=== PATIENT | female | born 1960 | race Caucasian/White ===

== ENCOUNTER → 2016-09-12 | Outpatient (CLI) | payer MEDICARE, MEDICAID ==
[~2016-09-12] MED LIST: ATIVAN 0.50.5 MG/TAB PO; FLEXERIL 1010 MG/TAB PO; MOTRIN 800800 MG/TAB PO; NEURONTIN600 MG/TAB PO; RISPERDAL2 MG PO
== END ==
LOC: COL.RAD 09:10
DX: R10.11 Right upper quadrant pain (principal); R14.0 Abdominal distension (gaseous); R93.2 Abnormal findings on diagnostic imaging of liver and biliary tract
CPT/HCPCS: A9537

== ENCOUNTER → 2017-03-08 | Outpatient (CLI) | payer MEDICARE, MEDICAID | LOC: COL.RAD 08:20 | DX: N20.0 Calculus of kidney (principal); K76.89 Other specified diseases of liver; Z90.710 Acquired absence of both cervix and uterus; K52.89 Other specified noninfective gastroenteritis and colitis ==

== ENCOUNTER → 2017-08-27 | Outpatient (CLI) | payer MEDICARE, MEDICAID | LOC: COL.RAD 15:52 | DX: M43.16 Spondylolisthesis, lumbar region (principal); M41.86 Other forms of scoliosis, lumbar region ==

== ENCOUNTER 2018-04-19 14:15 | Outpatient (RCR) | payer MEDICARE, MEDICAID ==
[2018-05-17] MEDS ORDERED: NEURONTIN800 MG/TAB PO (08:18)
[2018-05-17] MEDS ORDERED: MOBIC15 MG PO (08:19)
[2018-05-17] MEDS ORDERED: NORCO 325 MG-51 TAB PO ×2 (08:20→10:02)
[2018-05-17] MEDS ORDERED: LIORESAL 1010 MG/TAB PO (08:20)
[2018-05-17] MEDS ORDERED: BACTRIM DS 8001 TAB PO (08:21)
[2018-05-17] MEDS ORDERED: [UNRECOGNIZED DRUG - OTHER] PO (08:28)
[2018-05-17] MEDS ORDERED: FLOMAX 0.40.4 MG/CAP PO (10:01)
[2018-05-17] MEDS ORDERED: SENOKOT S 50 MG1 TAB PO (10:03)
== END 2018-06-09 | disposition home or self-care (01) ==
LOC: WSPT
DX: M48.061 Spinal stenosis, lumbar region without neurogenic claudication (principal); Z79.899 Other long term (current) drug therapy; F17.210 Nicotine dependence, cigarettes, uncomplicated
CPT/HCPCS: G8978-GP; G8979-GP

== ENCOUNTER → 2018-05-02 | Outpatient (CLI) | payer MEDICARE, MEDICAID | LOC: COL.RAD 11:00 | DX: N20.0 Calculus of kidney (principal); Z90.49 Acquired absence of other specified parts of digestive tract | CPT/HCPCS: Q9967 ==

== ENCOUNTER 2018-05-17 07:00 | Day surgery (SDC) | payer MEDICARE, MEDICAID ==
[~2018-05-17] VITALS: Ht 170.2 cm; Wt 66.3 kg
[2018-05-17 08:08] VITALS: BP 96/73; PULSE 94; TEMP 97.7
[2018-05-17] MEDS ORDERED: NEURONTIN800 MG/TAB PO (08:18)
[2018-05-17] MEDS ORDERED: MOBIC15 MG PO (08:19)
[2018-05-17] MEDS ORDERED: NORCO 325 MG-51 TAB PO ×2 (08:20→10:02)
[2018-05-17] MEDS ORDERED: LIORESAL 1010 MG/TAB PO (08:20)
[2018-05-17] MEDS ORDERED: BACTRIM DS 8001 TAB PO (08:21)
[2018-05-17] MEDS ORDERED: [UNRECOGNIZED DRUG - OTHER] PO (08:28)
[2018-05-17 09:47] VITALS: BP 128/75; PULSE 80
[2018-05-17] MEDS ORDERED: FLOMAX 0.40.4 MG/CAP PO (10:01)
[2018-05-17 10:02] VITALS: BP 124/77; PULSE 92
[2018-05-17] MEDS ORDERED: SENOKOT S 50 MG1 TAB PO (10:03)
[2018-05-17 10:17] VITALS: BP 120/75; PULSE 81
== END 2018-05-17 10:30 | disposition home or self-care (01) ==
LOC: SDCO 07:00
DX: N20.0 Calculus of kidney (principal); R39.15 Urgency of urination; R35.0 Frequency of micturition; R32 Unspecified urinary incontinence; R39.14 Feeling of incomplete bladder emptying; N39.41 Urge incontinence; F98.8 Other specified behavioral and emotional disorders with onset usually occurring in childhood and adolescence; F41.9 Anxiety disorder, unspecified; F31.9 Bipolar disorder, unspecified; F32.9 Major depressive disorder, single episode, unspecified; G43.909 Migraine, unspecified, not intractable, without status migrainosus; Z79.899 Other long term (current) drug therapy; F17.210 Nicotine dependence, cigarettes, uncomplicated; J44.9 Chronic obstructive pulmonary disease, unspecified; G89.29 Other chronic pain; M54.5 Low back pain; K21.9 Gastro-esophageal reflux disease without esophagitis; Z87.442 Personal history of urinary calculi; F17.290 Nicotine dependence, other tobacco product, uncomplicated
CPT/HCPCS: J0690; J1100; J1885; J2405; J2704; J2765; J3010; J7120

== ENCOUNTER 2018-08-08 08:27 | Outpatient (RCR) | payer MEDICARE, MEDICAID ==
[~2018-08-08 08:27] MED LIST changes: +BACTRIM DS 8001 TAB PO; +FLOMAX 0.40.4 MG/CAP PO; +LIORESAL 1010 MG/TAB PO; +MOBIC15 MG PO; +NEURONTIN800 MG/TAB PO; +NORCO 325 MG-51 TAB PO; +SENOKOT S 50 MG1 TAB PO; +[UNRECOGNIZED DRUG - OTHER] PO
== END 2018-09-26 12:23 | disposition home or self-care (01) ==
LOC: WSPT 08:27
DX: M48.061 Spinal stenosis, lumbar region without neurogenic claudication (principal)

== ENCOUNTER 2018-12-25 13:30 | Outpatient (RCR) | payer MEDICARE, MEDICAID | END 2019-01-13 | disposition still patient (30) | LOC: WSPT | DX: M48.062 Spinal stenosis, lumbar region with neurogenic claudication (principal); M43.16 Spondylolisthesis, lumbar region; M54.16 Radiculopathy, lumbar region; F17.200 Nicotine dependence, unspecified, uncomplicated; M41.85 Other forms of scoliosis, thoracolumbar region ==

== ENCOUNTER → 2019-01-08 | Outpatient (CLI) | payer MEDICARE, MEDICAID | LOC: COL.LAB 11:12 | DX: Z01.812 Encounter for preprocedural laboratory examination (principal); F17.200 Nicotine dependence, unspecified, uncomplicated ==

== ENCOUNTER → 2019-11-28 | Outpatient (CLI) | payer MEDICARE, MEDICAID | LOC: MC.RAD 15:58 | DX: Z12.31 Encounter for screening mammogram for malignant neoplasm of breast (principal); N63.10 Unspecified lump in the right breast, unspecified quadrant; N63.20 Unspecified lump in the left breast, unspecified quadrant ==

== ENCOUNTER → 2019-12-08 | Outpatient (CLI) | payer MEDICARE, MEDICAID | LOC: MC.RAD 14:06 | DX: N63.10 Unspecified lump in the right breast, unspecified quadrant (principal); N63.20 Unspecified lump in the left breast, unspecified quadrant ==

== ENCOUNTER 2020-02-03 11:00 | Outpatient (RCR) | payer MEDICARE, MEDICAID | END 2020-02-04 | disposition home or self-care (01) | LOC: WSPT | DX: M48.061 Spinal stenosis, lumbar region without neurogenic claudication (principal); M41.86 Other forms of scoliosis, lumbar region; M47.26 Other spondylosis with radiculopathy, lumbar region ==

== ENCOUNTER 2020-04-02 13:00 | Outpatient (RCR) | payer MEDICARE, MEDICAID | END 2020-05-06 | disposition home or self-care (01) | LOC: WSPT | DX: M48.061 Spinal stenosis, lumbar region without neurogenic claudication (principal) ==

== ENCOUNTER → 2020-05-20 | Outpatient (CLI) | payer MEDICARE, MEDICAID | LOC: MC.RAD 12:57 | DX: N63.0 Unspecified lump in unspecified breast (principal) ==

== ENCOUNTER 2020-10-28 08:22 | Outpatient (RCR) | payer MEDICARE, MEDICAID | END 2020-10-29 09:47 | disposition home or self-care (01) | LOC: WSPT 08:22 | DX: M48.061 Spinal stenosis, lumbar region without neurogenic claudication (principal) ==

== ENCOUNTER → 2021-01-20 | Outpatient (CLI) | payer MEDICARE, MEDICAID | LOC: MC.RAD 13:04 | DX: Z12.31 Encounter for screening mammogram for malignant neoplasm of breast (principal); N63.10 Unspecified lump in the right breast, unspecified quadrant; N63.20 Unspecified lump in the left breast, unspecified quadrant ==

== ENCOUNTER 2021-01-31 14:15 | Outpatient (RCR) | payer MEDICARE, MEDICAID | END 2021-02-06 | LOC: WSC | DX: M54.5 Low back pain (principal) ==

== ENCOUNTER → 2021-02-04 | Outpatient (CLI) | payer MEDICARE | LOC: MC.RAD 13:00 | DX: N63.10 Unspecified lump in the right breast, unspecified quadrant (principal); N63.20 Unspecified lump in the left breast, unspecified quadrant ==

== ENCOUNTER → 2021-03-08 | Outpatient (CLI) | payer MEDICARE, MEDICAID | LOC: MC.RAD 10:00 | DX: N63.20 Unspecified lump in the left breast, unspecified quadrant (principal) ==

== ENCOUNTER 2021-10-12 09:38 | Outpatient (RCR) | payer MEDICAID | END 2021-10-15 | LOC: WSPT | DX: M54.51 Vertebrogenic low back pain (principal) ==

== ENCOUNTER → 2021-11-15 | Outpatient (RCR) | payer MEDICAID | END | disposition home or self-care (01) | LOC: WSPT → WSC 10-25 09:45 → WSPT 11-01 09:45 | DX: M54.51 Vertebrogenic low back pain (principal) ==

== ENCOUNTER → 2021-12-15 | Outpatient (RCR) | payer MEDICAID | END | disposition home or self-care (01) | LOC: WSPT | DX: M54.51 Vertebrogenic low back pain (principal) | CPT/HCPCS: G0283-GP ==

== ENCOUNTER 2022-01-13 09:45 | Outpatient (RCR) | payer MEDICAID | END 2022-01-15 | disposition home or self-care (01) | LOC: WSPT | DX: M54.51 Vertebrogenic low back pain (principal) | CPT/HCPCS: G0283-GP ==

== ENCOUNTER 2022-02-09 13:30 | Outpatient (RCR) | payer MEDICAID | END 2022-02-15 | disposition home or self-care (01) | LOC: WSPT | DX: M54.51 Vertebrogenic low back pain (principal); G89.29 Other chronic pain | CPT/HCPCS: G0283-GP ==

== ENCOUNTER 2022-04-05 10:30 | Outpatient (RCR) | payer MEDICARE, MEDICAID | END 2022-04-17 | disposition home or self-care (01) | LOC: WSPT | DX: M54.51 Vertebrogenic low back pain (principal) ==

== ENCOUNTER 2022-10-12 11:15 | Outpatient (RCR) | payer MEDICARE, MEDICAID | END 2022-10-15 | disposition home or self-care (01) | LOC: WSPT | DX: M41.25 Other idiopathic scoliosis, thoracolumbar region (principal) ==

== ENCOUNTER → 2023-02-15 | Outpatient (RCR) | payer MEDICARE, MEDICAID | END | disposition home or self-care (01) | LOC: WSPT → WSC 01-25 09:45 → WSPT 02-06 09:00 | DX: M41.25 Other idiopathic scoliosis, thoracolumbar region (principal) | CPT/HCPCS: G0283-GP ==

== ENCOUNTER 2023-03-08 10:30 | Outpatient (RCR) | payer MEDICARE, MEDICAID | END 2023-03-17 | disposition home or self-care (01) | LOC: WSC | DX: M41.25 Other idiopathic scoliosis, thoracolumbar region (principal) | CPT/HCPCS: G0283-GP ==

== ENCOUNTER 2023-06-15 14:15 | Outpatient (RCR) | payer OTHER, MEDICAID | END 2023-06-17 | disposition home or self-care (01) | LOC: WSPT | DX: M41.25 Other idiopathic scoliosis, thoracolumbar region (principal) ==

== ENCOUNTER → 2023-07-18 | Outpatient (RCR) | payer MEDICARE, MEDICAID | END | disposition home or self-care (01) | LOC: WSPT | DX: M41.25 Other idiopathic scoliosis, thoracolumbar region (principal); M48.061 Spinal stenosis, lumbar region without neurogenic claudication | CPT/HCPCS: G0283-GP ==

== ENCOUNTER 2023-08-15 10:30 | Outpatient (RCR) | payer MEDICARE, MEDICAID | END 2023-08-16 | disposition home or self-care (01) | LOC: WSPT | DX: M41.25 Other idiopathic scoliosis, thoracolumbar region (principal); M48.061 Spinal stenosis, lumbar region without neurogenic claudication | CPT/HCPCS: G0283-GP ==

== ENCOUNTER → 2023-09-06 | Outpatient (CLI) | payer MEDICARE, MEDICAID | LOC: MHCPAIN 13:32 | DX: M48.062 Spinal stenosis, lumbar region with neurogenic claudication (principal); M41.9 Scoliosis, unspecified; M47.816 Spondylosis without myelopathy or radiculopathy, lumbar region; M47.814 Spondylosis without myelopathy or radiculopathy, thoracic region | CPT/HCPCS: G0463 ==

== ENCOUNTER 2023-09-12 10:30 | Outpatient (RCR) | payer MEDICARE, MEDICAID | END 2023-09-16 | disposition home or self-care (01) | LOC: WSPT | DX: M41.25 Other idiopathic scoliosis, thoracolumbar region (principal) | CPT/HCPCS: G0283-GP ==

== ENCOUNTER → 2023-10-09 | Outpatient (CLI) | payer MEDICARE, MEDICAID | LOC: MHCPAIN 10:07 | DX: M41.35 Thoracogenic scoliosis, thoracolumbar region (principal); M47.816 Spondylosis without myelopathy or radiculopathy, lumbar region; M48.061 Spinal stenosis, lumbar region without neurogenic claudication | CPT/HCPCS: G0463 ==

== ENCOUNTER → 2023-10-09 | Outpatient (CLI) | payer MEDICARE, MEDICAID | LOC: MHCPAIN 10:09 | DX: M48.062 Spinal stenosis, lumbar region with neurogenic claudication (principal); M25.551 Pain in right hip; M47.814 Spondylosis without myelopathy or radiculopathy, thoracic region; M47.816 Spondylosis without myelopathy or radiculopathy, lumbar region; R10.2 Pelvic and perineal pain | CPT/HCPCS: G0463 ==

== ENCOUNTER → 2023-12-13 | Outpatient (CLI) | payer MEDICARE, MEDICAID | LOC: MHCPAIN 10:19 | DX: M48.062 Spinal stenosis, lumbar region with neurogenic claudication (principal); M41.9 Scoliosis, unspecified; R07.89 Other chest pain; M25.551 Pain in right hip; M47.816 Spondylosis without myelopathy or radiculopathy, lumbar region; M47.814 Spondylosis without myelopathy or radiculopathy, thoracic region | CPT/HCPCS: G0463 ==

== ENCOUNTER → 2023-12-19 | Outpatient (CLI) | payer MEDICARE, MEDICAID | LOC: COL.RAD 11:11 | DX: M41.85 Other forms of scoliosis, thoracolumbar region (principal); J98.11 Atelectasis ==

== ENCOUNTER → 2024-03-17 | Outpatient (RCR) | payer MEDICARE, MEDICAID | END | disposition home or self-care (01) | LOC: WSPT | DX: M41.26 Other idiopathic scoliosis, lumbar region (principal); M41.24 Other idiopathic scoliosis, thoracic region | CPT/HCPCS: G0283-GP ==